=== PATIENT | male | born 1990 | race Caucasian/White ===

== ENCOUNTER 2020-05-29 17:41 | Emergency (ER) | payer OTHER ==
[~2020-05-29] VITALS: Ht 180.3 cm; Wt 108.9 kg
== END 2020-05-29 21:44 | disposition home or self-care (01) ==
LOC: ED 17:41
DX: R07.81 Pleurodynia (principal); Z87.891 Personal history of nicotine dependence; Z88.5 Allergy status to narcotic agent
CPT/HCPCS: 71046; 85379; 99285-25

== ENCOUNTER 2021-10-26 00:07 | Emergency (ER) | payer OTHER ==
[~2021-10-26] VITALS: Ht 180.3 cm; Wt 108.9 kg
== END 2021-10-26 05:00 | disposition home or self-care (01) ==
LOC: ED 00:07
DX: F12.129 Cannabis abuse with intoxication, unspecified (principal); Z87.891 Personal history of nicotine dependence; Z88.5 Allergy status to narcotic agent
CPT/HCPCS: 99284

== ENCOUNTER 2022-01-31 17:23 | Emergency (ER) | payer OTHER ==
[~2022-01-31] VITALS: Ht 180.3 cm; Wt 108.9 kg
== END 2022-02-01 12:05 | disposition home or self-care (01) ==
LOC: ED 17:23
DX: T14.91XA Suicide attempt, initial encounter (principal); Z87.891 Personal history of nicotine dependence; Z88.5 Allergy status to narcotic agent
CPT/HCPCS: 36415; 80053; 81001; 84443; 85025; 99285; G0480